=== PATIENT | male | born 1975 | race African-American/Black ===

== ENCOUNTER 2021-10-06 16:11 | Emergency (ER) | payer BC ==
[~2021-10-06] VITALS: Ht 175.3 cm; Wt 91.0 kg
[2021-10-06] MEDS ORDERED: SODIUM CHLORIDE 0.9% 1,000 ML IV ONE (17:00)
[2021-10-06] MEDS ORDERED: ASPIRIN 325MG TABLET PO ONE (17:00)
[2021-10-06 17:12] LABS: CHLORIDE 104 mEq/L (98-107)
[2021-10-06 17:14] VITALS: BP 138/89
[2021-10-06 17:14] LABS: BASOPHILS % 0.6 % (0.0-2.0); EOSINOPHILS % 1.5 % (0.0-5.0); HEMATOCRIT. 41.3 % (42.0-52.0); HEMOGLOBIN. 13.4 g/dL (14.0-18.0); LYMPHOCYTES % 25.2 % (20.0-50.0); MEAN CORPUSCULAR HEMOGLOBIN 23.5 pg (28.0-32.0); MEAN CORPUSCULAR VOLUME 72.6 fL (80.0-94.0); MEAN PLATELET VOLUME 8.1 fl (7.4-10.4); MONOCYTES % 6.4 % (2.0-8.0); NEUTROPHILS % 66.3 % (40.0-76.0); PLATELET 314 x1000/uL (130-400); RED BLOOD CELL COUNT 5.69 mill/uL (4.7-6.1); RED CELL DISTRIBUTION WIDTH 15.9 % (11.6-14.6)
== END 2021-10-06 19:53 | disposition home or self-care (01) ==
LOC: ER 16:11
DX: R07.89 Other chest pain (principal); I10 Essential (primary) hypertension
CPT/HCPCS: 36415; 71045; 80053; 83690; 84484; 85025; 96360; 96361; 99285; J7030